=== PATIENT | female | born 1995 | race American Indian/Alaskan Native ===

== ENCOUNTER 2020-03-11 12:10 | Emergency (ER) | payer MEDICAID ==
--- NOTE | 2020-03-11 12:49 | Emergency Department Report ---
ED ENT HPI - General Chief complaint: Sore Throat Stated complaint: THROAT PAIN Time Seen by Provider: 03/11/20 12:45 Source: patient Mode of arrival: Ambulatory Limitations: No Limitations - History of Present Illness Initial comments: 25-year-old female with no significant past medical history presents to the ER today complaining of sore throat for the past 2 or 3 days. She states that pain is worse when she swallows. She reports associated mild rhinorrhea, nasal congestion and mild cough. She denies any fever, chills or any other symptoms at this time. MD complaint: sore throat -: days(s) (2-3) - Related Data Previous Rx's Medication Instructions Recorded Last Taken Type Amoxicillin [Trimox CAP] 500 mg PO Q12H #20 capsule 03/11/20 Unknown Rx methylPREDNISolone [Medrol 4MG 4 mg PO DAILY #1 tab.ds.pk 03/11/20 Unknown Rx DOSEPAK (21 tabs)] Allergies Allergy/AdvReac Type Severity Reaction Status Date / Time No Known Allergies Allergy Unverified 07/19/14 13:44 ED Dental HPI - General Chief complaint: Sore Throat Stated complaint: THROAT PAIN Time Seen by Provider: 03/11/20 12:45 Source: patient Mode of arrival: Ambulatory Limitations: No Limitations - Related Data Previous Rx's Medication Instructions Recorded Last Taken Type Amoxicillin [Trimox CAP] 500 mg PO Q12H #20 capsule 03/11/20 Unknown Rx methylPREDNISolone [Medrol 4MG 4 mg PO DAILY #1 tab.ds.pk 03/11/20 Unknown Rx DOSEPAK (21 tabs)] Allergies Allergy/AdvReac Type Severity Reaction Status Date / Time No Known Allergies Allergy Unverified 07/19/14 13:44 ED Review of Systems ROS: Stated complaint: THROAT PAIN Other details as noted in HPI Comment: All other systems reviewed and negative Constitutional: denies: chills, fever ENT: throat pain, congestion, other (Rhinorrhea) Respiratory: cough Gastrointestinal: denies: abdominal pain, nausea, vomiting, diarrhea Skin: denies: rash, lesions Neurological: denies: headache, weakness, paresthesias ED Past Medical Hx - Past Medical History Previous Medical History?: Yes Hx Hypertension: Yes (dx 1 year ago) Additional medical history: eczema - Surgical History Past Surgical History?: No - Social History Smoking Status: Never Smoker Substance Use Type: None - Medications Home Medications: Home Medications Medication Instructions Recorded Confirmed Last Taken Type Amoxicillin [Trimox CAP] 500 mg PO Q12H #20 capsule 03/11/20 Unknown Rx methylPREDNISolone [Medrol 4MG 4 mg PO DAILY #1 tab.ds.pk 03/11/20 Unknown Rx DOSEPAK (21 tabs)] ED Physical Exam - General Limitations: No Limitations General appearance: alert, in no apparent distress - Head Head exam: Present: atraumatic, normocephalic, normal inspection - Eye Eye exam: Present: normal appearance, PERRL, EOMI Pupils: Present: normal accommodation - ENT ENT exam: Present: normal exam, mucous membranes moist - Expanded ENT Exam Expanded Mouth exam: Present: normal external inspection. Absent: drooling, trismus Throat exam: Positive: tonsillar erythema, tonsillomegaly. Negative: tonsillar exudate, R peritonsillar mass, L peritonsillar mass - Neck Neck exam: Present: normal inspection, full ROM, lymphadenopathy. Absent: meningismus - Respiratory Respiratory exam: Present: normal lung sounds bilaterally. Absent: respiratory distress - Cardiovascular Cardiovascular Exam: Present: regular rate, normal rhythm, normal heart sounds - GI/Abdominal GI/Abdominal exam: Present: soft. Absent: distended, tenderness - Neurological Exam Neurological exam: Present: alert, oriented X3, CN II-XII intact, normal gait - Psychiatric Psychiatric exam: Present: normal affect, normal mood - Skin Skin exam: Present: intact ED Course Vital Signs 03/11/20 12:28 Temperature 98.7 F Pulse Rate 63 Respiratory 16 Rate Blood Pressure 147/87 [Right] O2 Sat by Pulse 99 Oximetry ED Medical Decision Making - Medical Decision Making The patient is resting comfortably and is well-appearing and in no acute distress. There is no respiratory distress, no stridor and the mental status is normal. The neurological exam is normal, there is no significant signs of dehydration, and the patient is able to tolerate p.o. fluids. The history, exam, and the patient current condition does not suggest an infectious process such as meningitis, retropharyngeal abscess, epiglottitis, peritonsillar abscess, Laura's angina, mastoiditis, orbital cellulitis, periorbital cellulitis, severe meningitis, malignant otitis externa, sepsis or any significant pathology warranting further testing, continued ED treatment, admission, consultation or any other evaluation at this time. The vital signs have been stable. The patient condition is stable and appropriate for discharge. Critical care attestation.: If time is entered above; I have spent that time in minutes in the direct care of this critically ill patient, excluding procedure time. ED Disposition Clinical Impression: Pharyngitis Disposition: DC-01 TO HOME OR SELFCARE Is pt being admited?: No Does the pt Need Aspirin: No Condition: Stable Instructions: Pharyngitis, [id number] Additional Instructions: I recommend I take the medications as prescribed. I recommend drinking cold liquids or ice to help with the pain. You can also take Tylenol or Motrin to help with pain. Follow-up with your primary care doctor. Return to the ER if symptoms worsens or changes in any way. Prescriptions: methylPREDNISolone [Medrol 4MG DOSEPAK (21 tabs)] 4 mg PO DAILY #1 tab.ds.pk Amoxicillin [Trimox CAP] 500 mg PO Q12H #20 capsule Referrals: ROSINA CRESPO MD [Staff Physician] - 3-5 Days Forms: Work/School Release Form(ED) Time of Disposition: 13:07
[2020-03-11 14:43] VITALS: BP 152/65
== END 2020-03-11 14:44 | disposition home or self-care (01) ==
LOC: ED 12:10
DX: J02.9 Acute pharyngitis, unspecified (principal); R05 Cough; J34.89 Other specified disorders of nose and nasal sinuses; I10 Essential (primary) hypertension; Z79.2 Long term (current) use of antibiotics; Z79.899 Other long term (current) drug therapy
CPT/HCPCS: 99282

== ENCOUNTER 2020-11-09 12:23 | Emergency (ER) | payer MEDICAID ==
[2020-11-09 13:10] VITALS: BP 130/42
--- NOTE | 2020-11-09 13:53 | Emergency Department Report ---
ED Lower Extremity HPI - General Chief Complaint: Extremity Injury, Lower Stated Complaint: RT KNEE PAIN Time Seen by Provider: 11/09/20 13:03 Source: EMS Mode of arrival: Ambulatory Limitations: No Limitations - History of Present Illness Initial Comments: Patient is a 25-year-old female presents emergency room with complaints of right knee pain and swelling that began 3 days ago. Patient states that she fell down the steps 3 days ago. She states that she was inside the house and tripped and states she fell down approximately 4 steps and landed directly on her anterior knee. She states that she has been ambulatory but it is painful. She denies any numbness or weakness. She denies ever injuring in the past. No past medical history. No allergies to medications. Last menstrual cycle a few days ago. - Related Data Previous Rx's Medication Instructions Recorded Last Taken Type Amoxicillin [Trimox CAP] 500 mg PO Q12H #20 capsule 03/11/20 Unknown Rx methylPREDNISolone [Medrol 4MG 4 mg PO DAILY #1 tab.ds.pk 03/11/20 Unknown Rx DOSEPAK (21 tabs)] Naproxen 375 mg PO BID PRN #20 tablet 11/09/20 Unknown Rx Allergies Allergy/AdvReac Type Severity Reaction Status Date / Time No Known Allergies Allergy Unverified 07/19/14 13:44 ED Review of Systems ROS: Stated complaint: RT KNEE PAIN Other details as noted in HPI Comment: All other systems reviewed and negative ED Past Medical Hx - Past Medical History Previous Medical History?: Yes Hx Hypertension: Yes (dx 1 year ago) Additional medical history: eczema - Surgical History Past Surgical History?: No - Social History Smoking Status: Never Smoker Substance Use Type: None - Medications Home Medications: Home Medications Medication Instructions Recorded Confirmed Last Taken Type Amoxicillin [Trimox CAP] 500 mg PO Q12H #20 capsule 03/11/20 Unknown Rx methylPREDNISolone [Medrol 4MG 4 mg PO DAILY #1 tab.ds.pk 03/11/20 Unknown Rx DOSEPAK (21 tabs)] Naproxen 375 mg PO BID PRN #20 tablet 11/09/20 Unknown Rx ED Physical Exam - General Limitations: No Limitations General appearance: alert, in no apparent distress - Head Head exam: Present: atraumatic, normocephalic - Eye Eye exam: Present: normal appearance - ENT ENT exam: Present: mucous membranes moist - Extremities Exam Extremities exam: Present: other (ttp to the right anterior knee with mild crepitus, edema present, FROM of the RLE with discomfort upon flexion of the knee, neurovascularly intact) - Neurological Exam Neurological exam: Present: alert, oriented X3 - Psychiatric Psychiatric exam: Present: normal affect, normal mood - Skin Skin exam: Present: warm, dry, intact ED Course Vital Signs 11/09/20 12:36 Temperature 98.2 F Pulse Rate 64 Respiratory 16 Rate Blood Pressure 130/42 [Right] O2 Sat by Pulse 98 Oximetry ED Lower Extremity MDM - Radiology Data Radiology results: report reviewed Ordering Physician: JOSE LUIS GARCIA Date of Service: 11/09/20 Procedure(s): XR knee 4+V RT Accession Number(s): [id number] cc: JOSE LUIS GARCIA Fluoro Time In Minutes: RIGHT KNEE 4 VIEW(S) INDICATION / CLINICAL INFORMATION: fall directly on right knee X4DAYS COMPARISON: None available. FINDINGS: BONES / JOINT(S): No acute fracture or subluxation. No significant arthritis. SOFT TISSUES: No significant abnormality. ADDITIONAL FINDINGS: None. Signer Name: Breezy Cherry DO Signed: 11/09/2020 1:47 PM Workstation Name: [id number] Transcribed By: APLA Dictated By: BREEZY CHERRY DO Electronically Authenticated By: BREEZY CHERRY DO Signed Date/Time: 11/09/201346 DD/ 46 TD/TT: - Medical Decision Making Patient is a 25-year-old female presents emergency room with complaints of right knee pain and swelling that began 3 days ago. Patient states that she fell down the steps 3 days ago. She states that she was inside the house and tripped and states she fell down approximately 4 steps and landed directly on her anterior knee. She states that she has been ambulatory but it is painful. She denies any numbness or weakness. She denies ever injuring in the past. No past medical history. No allergies to medications. Last menstrual cycle a few days ago. Vitals are normal. On exam:ttp to the right anterior knee with mild crepitus, edema present, FROM of the RLE with discomfort upon flexion of the knee, neurovascularly intact. No erythema or increased warmth. X-ray knee: BONES / JOINT(S): No acute fracture or subluxation. No significant arthritis. SOFT TISSUES: No significant abnormality. ADDITIONAL FINDINGS: None. Examination and symptoms appear consistent with knee sprain. Patient placed in knee immobilizer and given crutches by EMT and remain neurovascularly intact. Advised patient Please take medication as prescribed as needed. Follow-up with a orthopedic doctor. Return to emergency room for any new or worsening symptoms. Critical care attestation.: If time is entered above; I have spent that time in minutes in the direct care of this critically ill patient, excluding procedure time. ED Disposition Clinical Impression: Knee sprain Qualifiers: Encounter type: initial encounter Involved ligament of knee: unspecified ligament Laterality: right Qualified Code(s): S83.91XA - Sprain of unspecified site of right knee, initial encounter Disposition: HOME / SELF CARE / HOMELESS Is pt being admited?: No Does the pt Need Aspirin: No Condition: Stable Instructions: Knee Sprain, Adult, [id number], Crutch Use, Adult Additional Instructions: Please take medication as prescribed as needed. Follow-up with a orthopedic doctor. Return to emergency room for any new or worsening symptoms. Prescriptions: Naproxen 375 mg PO BID PRN #20 tablet PRN Reason: pain Referrals: NETTIE BEATTY MD [Staff Physician] - 3-[address] [facility] [Provider Group] - 3-5 Days Forms: Work/School Release Form(ED) Time of Disposition: 14:03 Print Language: YI
== END 2020-11-09 15:03 | disposition home or self-care (01) ==
LOC: ED 12:23
DX: S83.91XA Sprain of unspecified site of right knee, initial encounter (principal); I10 Essential (primary) hypertension; W19.XXXA Unspecified fall, initial encounter; Y93.89 Activity, other specified; Y92.89 Other specified places as the place of occurrence of the external cause; Y99.8 Other external cause status
CPT/HCPCS: 99284